=== PATIENT | male | born 1940 | race Caucasian/White ===

== ENCOUNTER 2017-05-30 10:30 | Inpatient (IN) | payer OTHER ==
[~2017-05-30] VITALS: Ht 170.2 cm; Wt 75.7 kg
[~2017-05-30 10:30] MED LIST: AMOX1TAB12 PO; ATORVASTATIN CA10 MG; CALTRATE 600+D1 EAC1; CARVEDILOL3.125 MG; CLONAZEPAM1 MG PO; DOCUSATE SODIU100 MG PO; ECOTRIN81 MG; GABAPENTIN800 MG PO; LISINOPRIL10 MG; MAGNESIUM200 MG; PERCOCET 5-3251 EACH PO; PROTONIX40 M1
[2017-05-30] MEDS ORDERED: TRAJENTA PO (11:00)
[2017-05-30] MEDS ORDERED: PROTONIX40 M1 PO (11:00)
[2017-05-30] MEDS ORDERED: CALTRATE 600+D1 EAC1 PO (11:01)
[2017-06-08] MEDS ORDERED: GABAPENTIN800 MG PO (15:06)
[2017-06-08] MEDS ORDERED: PERCOCET 5-3251 EACH PO (15:06)
[2017-06-08] MEDS ORDERED: AMOX1TAB12 PO (15:06)
[2017-06-08] MEDS ORDERED: CLONAZEPAM1 MG PO (15:06)
[2017-06-08] MEDS ORDERED: DOCUSATE SODIU100 MG PO (15:06)
== END 2017-06-09 16:33 | disposition home or self-care (01) | DRG 517 ==
LOC: O/R 06-08 05:00 → SURH 06-08 05:00
PROVIDERS: Orthopaedic Surgery Orthopaedic Surgery of the Spine
PROC: 0QB00ZZ Excision of Lumbar Vertebra, Open Approach (ICD-10-PCS; principal; 2017-06-08 07:00)
DX: M48.56XA Collapsed vertebra, not elsewhere classified, lumbar region, initial encounter for fracture (principal); M48.061 Spinal stenosis, lumbar region without neurogenic claudication; I10 Essential (primary) hypertension; E11.9 Type 2 diabetes mellitus without complications